=== PATIENT | female | born 1945 | race Two or more races ===

== ENCOUNTER 2018-04-11 09:17 | Outpatient (CLI) | payer OTHER | END 2018-04-11 09:24 | disposition home or self-care (01) | LOC: MAMO-SONO 09:17 | DX: Z12.31 Encounter for screening mammogram for malignant neoplasm of breast (principal); Z87.898 Personal history of other specified conditions; N62 Hypertrophy of breast ==

== ENCOUNTER 2019-04-14 09:18 | Outpatient (CLI) | payer OTHER | END 2019-04-14 09:25 | disposition home or self-care (01) | LOC: MAMO-SONO 09:18 | DX: Z12.31 Encounter for screening mammogram for malignant neoplasm of breast (principal); Z87.898 Personal history of other specified conditions ==

== ENCOUNTER 2020-01-21 02:38 | Emergency (ER) | payer OTHER ==
[~2020-01-21] VITALS: Ht 154.9 cm; Wt 55.3 kg
[2020-01-21] MEDS ORDERED: SYNTHROID50 MCG (02:59)
== END 2020-01-21 13:39 | disposition home or self-care (01) ==
LOC: ER 02:38
DX: I16.0 Hypertensive urgency (principal); I10 Essential (primary) hypertension